=== PATIENT | male | born 1950 | race Caucasian/White ===

== ENCOUNTER 2019-11-22 11:33 | Outpatient (CLI) | payer MEDICARE, OTHER, SELFPAY ==
--- NOTE | ~2019-11-22 | XR_ITS ---
EXAMINATION: XR abdomen/kub 1V EXAM DATE: 11/22/2019 11:55 INDICATION: Kidney stone. TECHNIQUE: Frontal projection(s) of the abdomen for interpretation. There is no prior study for ceci bangura. FINDINGS: Approximately 7 mm stone within the lower pole of the right kidney and similar size stone in the lower pole of the left kidney. There is posterior fusion hardware L4-5. There is a nonobstruct yasmeen bowel gas pattern. Lung bases are unremarkable. IMPRESSION: 1. Bilateral nephrolithiasis. Reviewed, dictated and finalized at location A.
== END 2019-11-22 11:34 | disposition home or self-care (01) ==
PROVIDERS: Visit Provider Urology
DX: N20.0 Calculus of kidney (principal)
CPT/HCPCS: 74018

== ENCOUNTER 2019-12-14 12:51 | Outpatient (CLI) | payer MEDICARE, OTHER, SELFPAY ==
--- NOTE | 2019-12-14 12:54 | ECG_ITS ---
Measurements Intervals [place] Rate: 87 P: 60 AL: 149 QRS: 159 QRSD: 132 T: -2 QT: 361 QTc: 437 Interpretive Statements SINUS RHYTHM RIGHT BUNDLE BRANCH BLOCK LEFT POSTERIOR FASCICULAR BLOCK BASELINE ARTIFACT- I, II, III, AVR, AVL, AVF ABNORMAL ECG Electronically Signed On 12-14-2019 13:58:35 CDT by Norman Clancy D.O.
[2019-12-14 13:32] LABS: Blood Urea Nitrogen 19 mg/dL (9-20); Calcium 9.2 mg/dL (8.4-10.2); Carbon Dioxide 30 mmol/L (22-30); Chloride 105 mmol/L (98-107); Estimated Glomerular Filt Rate 55; Glucose 99 mg/dL (75-110); Sodium 139 mmol/L (137-145)
== END 2019-12-14 12:52 | disposition home or self-care (01) ==
LOC: ANHSURGERY 12:53
PROVIDERS: Anesthesiology; Visit Provider Urology
DX: Z01.818 Encounter for other preprocedural examination (principal); I10 Essential (primary) hypertension; N35.919 Unspecified urethral stricture, male, unspecified site; R94.31 Abnormal electrocardiogram [ECG] [EKG]
CPT/HCPCS: 36415; 80048; 87077; 87086; 87088; 87186; 93005

== ENCOUNTER 2019-12-17 00:44 | Outpatient (CLI) | payer MEDICARE, OTHER, SELFPAY ==
[2019-12-17 16:39] LABS: SARS-CoV-2 RNA PCR Negative
== END 2019-12-17 00:45 | disposition home or self-care (01) ==
LOC: ANHCOVIDDT 00:44
PROVIDERS: Visit Provider Urology
DX: Z01.812 Encounter for preprocedural laboratory examination (principal); Z20.828 Contact with and (suspected) exposure to other viral communicable diseases
CPT/HCPCS: 87635; C9803; U0003

== ENCOUNTER 2019-12-20 00:31 | Day surgery (SDC) | payer MEDICARE, OTHER, SELFPAY ==
[2019-12-12 15:21] VITALS: BMI 28.9
[2019-12-20] MEDS: LACTATED RINGERS 1,000 ML 30 ML IV CONT (06:20)
[2019-12-20 06:52] VITALS: BP 133/77; PULSE 70; RESP 16; TEMP 36.6; O2SAT 95
--- NOTE | 2019-12-20 06:52 | P.PNAN_ITS ---
Anes - Initial Pre Proc Eval Procedure: Operation Date: 12/20/19 07:30 Proposed Procedures p Cystoscopy, Urethral Dilatation - Cristian Coppola MD Date/Time: 12/20/19 06:52 Surgeon: Cristian Coppola MD Pre Op Diagnosis: urethral stricture Patient Data Age: 69 Gender: M Height: 5 ft 8 in Weight: 88.5 kg Allergies Allergy/AdvReac Type Severity Reaction Status Date / Time levofloxacin Allergy Unknown Hives Verified 12/20/19 05:58 Home Medications Medication Instructions Recorded Confirmed Type atorvastatin [Lipitor] 40 mg PO DAILY 12/12/19 12/20/19 History hydrochlorothiazide 25 mg PO DAILY 12/12/19 12/20/19 History meclizine 25 mg PO BID PRN 12/12/19 12/12/19 History metoprolol succinate [Toprol XL] 50 mg PO DAILY 12/12/19 12/20/19 History tadalafil 5 mg PO DAILY 12/12/19 12/20/19 History tamsulosin [Flomax] 0.4 mg PO DAILY 12/12/19 12/20/19 History nitrofurantoin monohyd/m-cryst 100 mg PO BID 12/20/19 12/20/19 History Patient hx anesthesia problems: none Family hx anesthesia problems: none [facility] Past Medical History Medical History (Updated 12/20/19 @ 06:55 by Leonid Alcantar MD) HTN (hypertension) Hyperlipidemia Overweight Surgical History Surgical History (Updated 12/20/19 @ 06:56 by Leonid Alcantar MD) History of lumbar fusion Social History Social History (Updated 12/20/19 @ 06:56 by Leonid Alcantar MD) Smoking status: Former smoker Anes - Eval Final PreProcedure Day of Procedure 12/20/19 06:52 Patient weight: overweight Heart: regular rate and rhythm Lungs: clear to auscultation Airway: Mallampati scale Neurological: alert and oriented Last oral intake: >/= 8 hours ASA classification: II Emergent: no Anesthetic plan: proceed Anesthesia type and monitoring: general GIVS and standard monitoring Informed Consent: The patient's anesthetic plan and its attendant risks and benefits were discussed with the patient/family/POA. Questions were solicited and answers provided to the satisfaction of the patient/family/POA.
--- NOTE | 2019-12-20 07:19 | WPDHPUPDATE1 ---
History and Physical Update Update Date/Time: 12/20/19 07:19 History and Physical has been reviewed, including an updated exam of the patient. There are NO changes in the patient's condition. Risks, benefits, and alternatives have been discussed and questions answered. Patient agrees to proceed with procedure.
[2019-12-20] MEDS: ceFAZolin 2 GM/D5W 50 ML 2 GM/50 ML BAG IVPB (07:33)
[2019-12-20] MEDS: LIDOCAINE HCL 2% GEL UROJET 10 ML PKG MUCOUS MEM (07:48)
--- NOTE | 2019-12-20 07:59 | P.OP_ITS ---
Procedure Note - Detailed Date of procedure: 12/20/19 Pre-op diagnosis: urethral stricture Post-op diagnosis: same Procedure performed: Urethral dilatation with am plants dilators to 22 Citizen [place], cystoscopy, Mcgowan catheter placement Description of procedure: Patient was taken to the operative suite correctly identified. Once anesthesia was obtained he was placed in the dorsal lithotomy position and prepped and draped usual sterile fashion. Nineteen Citizen [place] scope inserted into the meatus. He has a bulbar urethral stricture. We placed a superstiff guidewire through the stricture into the bladder and this was confirmed under fluoroscopy. Using Amplantz dilators the stricture was dilated to 22 [place]. Reinspection with the cystoscope then reveals some mild lateral lobe hypertrophy. The bladder was inspected in its entirety. Both ureteral orifices normal anatomic position. There were no tumors or other irregularities noted. Scope was removed 2% viscous lidocaine was inserted into the urethra. Twenty Citizen [place] Ages [place] tip catheter was then passed into the bladder and inflated with 10 cc in the balloon. This was connected to gravity drainage patient was taken recovery room stable condition. Will plan on removing the Mcgowan catheter on . Will need to address is right renal stone at a later point. Anesthesia: GLMA Surgeon: Cristian Coppola MD Drains: Yes Packing: No Pathology: none sent Complications: No immediate complications Condition: stable Disposition: PACU
[2019-12-20 08:03] VITALS: BP 100/65; PULSE 71; RESP 14; O2SAT 93
[2019-12-20 08:30] VITALS: BP 136/80; PULSE 64; RESP 14; O2SAT 95
[2019-12-20] MEDS: TRAMADOL HCL 50 MG TABLET PO (08:42)
[2019-12-20 09:00] VITALS: BP 130/76; PULSE 53; RESP 14; O2SAT 93
[2019-12-20 09:25] VITALS: BP 142/71; PULSE 52; RESP 14; O2SAT 92
== END 2019-12-20 09:33 | disposition home or self-care (01) ==
PROVIDERS: Visit Provider Urology
PROC: 0T7D8ZZ Dilation of Urethra, Via Natural or Artificial Opening Endoscopic (ICD-10-PCS; CPT 52281; principal; 2019-12-20 07:30)
DX: N35.912 Unspecified bulbous urethral stricture, male (principal); I10 Essential (primary) hypertension; E78.5 Hyperlipidemia, unspecified; Z98.1 Arthrodesis status; Z87.891 Personal history of nicotine dependence
CPT/HCPCS: 52281; A9270; C1726; C1769; J0690; J1100; J2704; J3010; J7120

== ENCOUNTER 2020-01-26 15:09 | Outpatient (CLI) | payer MEDICARE, OTHER, SELFPAY ==
--- NOTE | ~2020-01-26 | XR_ITS ---
XR abdomen/kub 1V DATE: 01/26/2020 15:36 INDICATION: Right kidney stone TECHNIQUE: AP projection, 2 views COMPARISON: 11/22/2019 KUB FINDINGS: An approximately 6 7 7 mm calcified calculus overlies each kidney. Status post bilateral posterior spinal fusion by pedicle screws and rods at L4-5. No evidence of bowel obstruction. No visceromegaly is evident. IMPRESSION: Bilateral approximately 6 7 7 mm calcified renal calculus Reviewed, dictated and finalized at Location A. Reviewed, dictated and finalized at location A.
== END 2020-01-26 15:10 | disposition home or self-care (01) ==
LOC: ANHIMG 15:16
PROVIDERS: Visit Provider Urology
DX: N20.0 Calculus of kidney (principal)
CPT/HCPCS: 74018

== ENCOUNTER 2020-03-15 09:52 | Outpatient (CLI) | payer MEDICARE, OTHER, SELFPAY ==
--- NOTE | ~2020-03-15 | XR_ITS ---
EXAMINATION: XR abdomen/kub 1V DATE: 03/15/2020 10:06 INDICATION: Nephrolithiasis post right-sided lithotripsy TECHNIQUE: A supine view of the abdomen on 2 radiographs was obtained. COMPARISON: 01/26/2020 FINDINGS: Unchanged 8 mm stone projecting over the lower pole of the left kidney. Smaller 4 mm stone fragment a t the site of a prior larger stone at the lower pole of the right kidney. No other stones or stone fr agments seen along the course of the ureters. Normal bowel gas pattern. L4-L5 posterior spinal fusion with bilateral vertical farhan and pedicle screw fixation. IMPRESSION: 1. Unchanged 8 mm left renal stone and residual 4 mm stone fragment at the site of a prior larger sto ne at the lower pole of the right kidney. Reviewed, dictated and finalized at location B. IMPRESSION: 1. Unchanged 8 mm left renal stone and residual 4 mm stone fragment at the site of a prior larger stone at the lower pole of the right kidney.
== END 2020-03-15 09:53 | disposition home or self-care (01) ==
LOC: ANHIMG 09:56
PROVIDERS: Visit Provider Urology
DX: N20.0 Calculus of kidney (principal)
CPT/HCPCS: 74018

== ENCOUNTER 2020-03-26 12:44 | Outpatient (CLI) | payer MEDICARE, OTHER, SELFPAY ==
[2020-03-26 13:39] LABS: Anion Gap 6 mmol/L (8-16); Blood Urea Nitrogen 27 mg/dL (9-20); Calcium 9.3 mg/dL (8.4-10.2); Carbon Dioxide 30 mmol/L (22-30); Chloride 103 mmol/L (98-107); Estimated Glomerular Filt Rate > 60; Glucose 99 mg/dL (75-110); Potassium 4.4 mmol/L (3.4-5.0); Sodium 139 mmol/L (137-145)
[2020-03-26 14:17] LABS: INR 1.1; Partial Thromboplastin Time 27.5 SECONDS (22.3-36.8); Prothrombin Time 13.6 Seconds (11.1-14.7)
== END 2020-03-26 12:45 | disposition home or self-care (01) ==
LOC: ANHSURGERY 12:47
PROVIDERS: Anesthesiology; Visit Provider Urology
DX: Z01.818 Encounter for other preprocedural examination (principal); I10 Essential (primary) hypertension; N20.0 Calculus of kidney
CPT/HCPCS: 36415; 80048; 85610; 85730; 87077; 87086; 87088; 87186

== ENCOUNTER 2020-03-28 00:21 | Outpatient (CLI) | payer MEDICARE, OTHER, SELFPAY ==
[2020-03-28 18:29] LABS: SARS-CoV-2 RNA PCR Negative
== END 2020-03-28 00:22 | disposition home or self-care (01) ==
LOC: ANHCOVIDDT 00:21
PROVIDERS: Visit Provider Urology
DX: Z01.812 Encounter for preprocedural laboratory examination (principal); Z11.59 Encounter for screening for other viral diseases
CPT/HCPCS: 87635; C9803; U0003

== ENCOUNTER 2020-03-30 03:49 | Day surgery (SDC) | payer MEDICARE, OTHER, SELFPAY ==
[2020-03-23 09:02] VITALS: BMI 29.7
[2020-03-30] VITALS (8 sets, daily range): BP systolic 122–152; BP diastolic 67–87; PULSE 58–73; RESP 12–20; TEMP 36.1–36.2; O2SAT 93–98
--- NOTE | ~2020-03-30 | XR_ITS ---
XR abdomen/kub 1V 03/30/2020 08:13 Indication: Left-sided stone. Preop. Procedure: KUB Comparison: 03/15/2020 Findings: There are bilateral renal stones, largest in the lower pole of the left kidney measuring 8. 5 mm. There are pedicle screws at L4-5. Bowel pattern is nonobstructive. No acute osseous abnormality . Impression: 1: Bilateral nephrolithiasis. Reviewed, dictated and finalized at location B. Impression: 1: Bilateral nephrolithiasis.
--- NOTE | 2020-03-30 07:25 | WPDHPUPDATE1 ---
History and Physical Update Update Date/Time: 03/30/20 07:25 History and Physical has been reviewed, including an updated exam of the patient. There are NO changes in the patient's condition. Risks, benefits, and alternatives have been discussed and questions answered. Patient agrees to proceed with procedure. Plan on left renal eswl with cysto possible urethral dilation.
--- NOTE | 2020-03-30 07:56 | WPDANESEPPF ---
Anes - Initial Pre Proc Eval Procedure: Operation Date: 03/30/20 10:00 Proposed Procedures p Left Renal Extracorporeal Shock Wave Lithotripsy - Cristian Coppola MD s Flexible Cystoscopy, Possible Urethral Dilatation - Cristian Coppola MD Date/Time: 03/30/20 07:56 Surgeon: Cristian Coppola MD Pre Op Diagnosis: left renal stone Patient Data Age: 69 Gender: M Height: 1.7 m Weight: 86.2 kg Allergies Allergy/AdvReac Type Severity Reaction Status Date / Time levofloxacin Allergy Unknown Hives Verified 03/23/20 08:57 Sulfa (Sulfonamide AdvReac Rash Verified 03/23/20 08:58 Antibiotics) Home Medications Medication Instructions Recorded Confirmed Type atorvastatin [Lipitor] 40 mg PO DAILY 12/12/19 03/23/20 History hydrochlorothiazide 25 mg PO DAILY 12/12/19 03/23/20 History meclizine 25 mg PO PRN PRN 12/12/19 03/23/20 History metoprolol succinate [Toprol XL] 50 mg PO DAILY 12/12/19 03/23/20 History tadalafil 5 mg PO DAILY 12/12/19 03/23/20 History tamsulosin [Flomax] 0.4 mg PO DAILY 12/12/19 03/23/20 History Patient hx anesthesia problems: none Family hx anesthesia problems: none [facility] Past Medical History Medical History (Updated 03/29/20 @ 11:02 by Danyel Dooley DO) HTN (hypertension) Hyperlipidemia HERMINIA (obstructive sleep apnea) Overweight Surgical History Surgical History (Updated 12/20/19 @ 06:56 by Leonid Alcantar MD) History of lumbar fusion Social History Social History (Updated 12/20/19 @ 06:56 by Leonid Alcantar MD) Smoking status: Former smoker Tobacco type: cigarettes Smoking end date: 07/13/80 Additional smoking assessment comments: S.O. DOESN'T KNOW HOW MUCH HE SMOKED OR FOR HOW LONG Alcohol intake: current Drinks per week: 2 Alcohol use details: WINE Living arrangements: with family Spiritual care concerns: No Anes - Eval Final PreProcedure Day of Procedure 03/30/20 07:56 Patient weight: overweight Heart: regular rate and rhythm Lungs: clear to auscultation and normal air movement Airway: Mallampati scale class III Neurological: alert and oriented Last oral intake: >/= 8 hours ASA classification: III Emergent: no Anesthetic plan: proceed Anesthesia type and monitoring: general LMA and standard monitoring Informed Consent: The patient's anesthetic plan and its attendant risks and benefits were discussed with the patient/family/POA. Questions were solicited and answers provided to the satisfaction of the patient/family/POA.
[2020-03-30] MEDS: LACTATED RINGERS 1,000 ML 30 ML IV CONT (08:35)
[2020-03-30] MEDS: ceFAZolin 2 GM/D5W 50 ML 2 GM/50 ML BAG IVPB (09:02)
[2020-03-30] MEDS: LIDOCAINE HCL 2% GEL UROJET 10 ML PKG MUCOUS MEM (09:12)
--- NOTE | 2020-03-30 09:45 | PM.PROC ---
Procedure Note - Detailed Date of procedure: 03/30/20 Pre-op diagnosis: left renal stone Urethral stricture Post-op diagnosis: same Procedure performed: Cystoscopy with urethral dilation with male sounds, ESWL left renal calculus Description of procedure: Patient is taken the operative suite and correctly identified. Once anesthesia was obtained he was placed in supine position. He was prepped and draped usual sterile fashion. Mini flexible scope was inserted into the urethra. He does have a bulbar urethral stricture which allowed passage of the 16 [place] scope but it was quite tight. The bladder itself reveals no evidence of tumors or irregularities at this time. At this point we dilated the stricture with male sounds up to 24 [place]. 2% viscous lidocaine was then inserted into the urethra. Patient was then positioned so that the left renal stone was visualized in both planes. Two thousand five hundred shocks were given to the stone. Patient tolerated procedure well without any complications this taken recovery room stable condition. The stone measures about 1 cm. He will follow up in about 7-10 days with KUB Anesthesia: GLMA Surgeon: Cristian Coppola MD Drains: No Packing: No Pathology: none sent Complications: No immediate complications Condition: stable Disposition: PACU
== END 2020-03-30 11:04 | disposition home or self-care (01) ==
PROVIDERS: Visit Provider Urology
PROC: (CPT 50590; principal; 2020-03-30 10:00)
PROC: 0TJB8ZZ Inspection of Bladder, Via Natural or Artificial Opening Endoscopic (ICD-10-PCS; CPT 52000; 2020-03-30 10:00)
DX: N20.0 Calculus of kidney (principal); N35.912 Unspecified bulbous urethral stricture, male; I10 Essential (primary) hypertension; E78.5 Hyperlipidemia, unspecified; G47.33 Obstructive sleep apnea (adult) (pediatric); Z87.891 Personal history of nicotine dependence
CPT/HCPCS: 52281; 50590; 74018; A9270; J0690; J1100; J2405; J2704; J3010; J7030; J7120

== ENCOUNTER 2020-04-11 08:27 | Outpatient (CLI) | payer MEDICARE, OTHER, SELFPAY ==
--- NOTE | ~2020-04-11 | XR_ITS ---
XR abdomen/kub 1V DATE: 04/11/2020 08:43 INDICATION: Kidney stones TECHNIQUE: AP projection COMPARISON: 03/30/2020 FINDINGS: There is a rounded 3.4 mm calcified calculus of the lower pole of the right kidney. Instead of one rounded approximately 7 mm calcified calculus of the lower pole of the left kidney the re are multiple contiguous calcified calculi of the lower pole of the left kidney, with overall dimen igor of approximately 5.5 x 10 mm dimension. The psoas shadows are intact. No visceromegaly is evident. The bowel gas pattern is unremarkable, wit hout evidence of obstruction. Bilateral pedicle screws and rods at L4-5. IMPRESSION: Bilateral nephrolithiasis Reviewed, dictated and finalized at Location A. Reviewed, dictated and finalized at location B. IMPRESSION: Bilateral nephrolithiasis
== END 2020-04-11 08:28 | disposition home or self-care (01) ==
LOC: ANHIMG 08:31
PROVIDERS: Visit Provider Urology
DX: N20.0 Calculus of kidney (principal)
CPT/HCPCS: 74018

== ENCOUNTER 2020-05-09 11:52 | Outpatient (CLI) | payer MEDICARE, OTHER, SELFPAY ==
--- NOTE | ~2020-05-09 | XR_ITS ---
XR abdomen/kub 1V DATE: 05/09/2020 12:08 INDICATION: Bilateral kidney stones TECHNIQUE: AP projection, 2 views COMPARISON: 04/11/2020 KUB FINDINGS: There is approximately 3 mm calcified density overlying the lower pole of the right kidney. Several calcifications overlie the lower pole left kidney, the largest approximately 3 mm. No visceromegaly is evident. The psoas shadows are intact. There is a moderately prominent amount of fecal material within the rectum and colon but no apparent bowel obstruction. Status post posterior spinal fusion at L4-5. IMPRESSION: Bilateral nephrolithiasis Reviewed, dictated and finalized at Location A. Reviewed, dictated and finalized at location A. IMPRESSION: Bilateral nephrolithiasis
== END 2020-05-09 11:53 | disposition home or self-care (01) ==
PROVIDERS: Visit Provider Urology
DX: N20.0 Calculus of kidney (principal)
CPT/HCPCS: 74018